=== PATIENT | female | born 1975 | race Caucasian/White ===

== ENCOUNTER 2018-08-18 11:59 | Observation (INO) ==
[2018-08-18 12:40] LABS: Clarity,Urine Slightly Cloudy (Clear); Color,Urine Orange (Yellow)
[2018-08-18 12:41] LABS: Bacteria,Urine Few per hpf (None-Few); RBC,Urine 0-3 per hpf (0-3); Squamous Epithelial Cell,Urine Few per lpf (None-Few)
[2018-08-18 12:49] LABS: Basophils # 0.1 K/mcL (0.0-0.2); Basophils % 0.7 %; Eosinophils # 0.2 K/mcL (0.0-0.6); Eosinophils % 2.6 %; Hematocrit 40.1 % (35.3-44.9); Hemoglobin 13.3 g/dL (11.5-15.4); Immature Granulocytes % 0.7 % (0-4); Lymphocytes # 1.4 K/mcL (0.6-4.6); Lymphocytes % 18.4 %; Mean Corpuscular HGB Conc 33.2 g/dL (31.6-35.5); Mean Corpuscular Hemoglobin 29.8 pg (28.0-33.3); Mean Corpuscular Volume 89.7 fL (83.0-100.0); Mean Platelet Volume 9.5 fL (9.4-12.4); Monocytes # 0.5 K/mcL (0.0-1.3); Monocytes % 6.5 %; Neutrophils # 5.2 K/mcL (1.6-8.9); Platelet Count 263 K/mcL (140-400); Red Blood Count 4.47 M/mcL (3.82-4.97); Red Cell Distribution Width 12.4 % (11.5-14.5); Segmented Neutrophils % 71.1 %
[2018-08-18 13:04] LABS: Alanine Aminotransferase 21 Units/L (7-52); Albumin 4.3 g/dL (3.5-5.7); Albumin/Globulin Ratio 1.7 (1.1-2.2); Alkaline Phosphatase 51 Units/L (34-104); Aspartate Amino Transferase 16 Units/L (13-39); BUN/Creatinine Ratio 17 (6-26); Bilirubin,Direct 0.1 mg/dL (0.0-0.2); Bilirubin,Indirect 0.2 mg/dL (0.0-1.2); Bilirubin,Total 0.3 mg/dL (0.3-1.0); Blood Urea Nitrogen 14 mg/dL (6-20); Calcium 9.5 mg/dL (8.6-10.3); Carbon Dioxide 29 mEq/L (23-29); Chloride 105 mEq/L (98-107); Globulin 2.5 g/dL (2.4-3.5); Glucose 89 mg/dL (70-105); Lipase 23 Units/L (11-82); Osmolality,Calculated 288 (280-300); Sodium 139 mEq/L (136-145); Total Protein 6.8 g/dL (6.4-8.9); eGFR For Non-African Americans > 60 (> 60)
--- NOTE | 2018-08-18 14:14 | Emergency Department Note ---
Disposition Clinical Impression: History of kidney stones, Intractable abdominal pain Disposition: Admitted As Inpatient Condition: Good Referrals: NONE,PCP [Primary Care Provider] - Forms: ED Satisfaction Letter, Work/School Release Time of Disposition: 19:17 Abdominal Pain HPI - General Chief Complaint: ED Abdominal Pain Stated Complaint: kidney stone Time Seen by Provider: 08/18/18 14:14 Source: patient Mode of arrival: ambulatory Limitations: no limitations Nursing Notes Reviewed: Yes Vital Signs Reviewed: Yes - History of Present Illness HPI Narrative: I have re-performed and reviewed the history documented by the medical student, and I confirm its accuracy except as noted below Pain Scale: 7 - Related Data Previous Rx's Medication Instructions Recorded Ketorolac [Toradol] 10 mg PO Q6HR #14 tablet 07/14/18 Allergies Allergy/AdvReac Type Severity Reaction Status Date / Time No Known Allergies Allergy Verified 01/09/16 14:28 All systems ED: reviewed and negative except as stated. Constitutional: Denies: fever Cardiovascular: Denies: chest pain Respiratory: Denies: cough, dyspnea Gastrointestinal: Reports: abdominal pain. Denies: nausea, vomiting, diarrhea Genitourinary: Reports: dysuria. Denies: urgency, frequency, hematuria, discharge, abnormal menses Neurological: Denies: headache, weakness, numbness, paresthesias Abdominal Pain PMH - Past Medical History Medical history: Reports: kidney stones Female Surgical History: Reports: , cholecystectomy Psychiatric history: Reports: no psych history - Social History Smoking status: Never smoker Alcohol use: Reports: rarely Drug use: Reports: none Physical Exam - General Limitations: no limitations General appearance: alert, anxious - Head Head exam: atraumatic, normocephalic, normal inspection - Eye Eye exam: Present: normal appearance, PERRL, EOMI - ENT ENT exam: normal exam, normal oropharynx, mucous membranes moist - Neck Neck exam: Present: normal inspection, full ROM, trachea midline - Chest Chest inspection: Present: normal inspection, symmetric chest wall rise - Respiratory Respiratory exam: Present: normal lung sounds bilaterally - Cardiovascular Cardiovascular exam: Present: regular rate, normal rhythm, normal heart sounds - Abdominal Exam Abdominal exam: Present: soft, Non-Tender. Absent: tenderness, distention, guar ding, rebound, rigidity - Extremities Exam Extremities exam: Present: normal inspection, full ROM. Absent: tenderness, pedal edema - Neurological Exam Neurological exam: Present: alert, oriented X3 - Psychiatric Psychiatric exam: Present: normal affect - Skin Skin exam: Present: warm, dry, intact, normal color Course Course Narrative: Vital stable. Physical exam shows no reproducible abdominal tenderness. Patient feels as though she is getting ready to pass the kidney stone that is present. She is having pain in what she describes as the proximal urethra region. She is still able to pass urine. She has no systemic signs such as nausea, vomiting, fevers. She is supposed to follow-up with urology tomorrow. I do not feel that this patient needs CT imaging at this time as she has a diagnosed 4-5 mm stone that is known. Basic blood work was obtained in triage and shows no major abnormalities. Urinalysis obtained to assess for UTI. No signs of UTI. We give the patient fentanyl and Reading for pain control. She was having some discomfort. We will try some dissociative ketamine at this time. If we can get patient's pain under control, will have her follow-up with urology tomorrow as scheduled. 19:23 patient was given multiple doses of pain medication including fentanyl, Reading, some dissociative ketamine for pain. She is still having suprapubic pain. I talked with urology, Dr. quiroz, he was agreeable with admitting the patient for intractable lower abdominal pain. We will admit the patient to hospitalist. He requested a KUB which showed nonspecific calcifications. He also requested for fluid and Flomax. This was given. I spoke with hospitalist who is agreeable with admitting the patient for intractable pain control. consult urology will be placed. Plan for further pain control inpatient. KUB X-Ray 08/18/18 18:38 IMPRESSION: There are multiple small calcifications in the pelvis. A distal ureteral calculus cannot be excluded. D/ / Todd Guerrero MD / Todd Guerrero MD Interpreting Provider: Todd Guerrero MD Vital Signs Temperature 97.9 F 08/18/18 12:00 Pulse Rate 77 08/18/18 12:00 Respiratory Rate 16 08/18/18 12:00 Blood Pressure 140/76 08/18/18 12:00 O2 Sat by Pulse Oximetry 100 08/18/18 12:00 Temperature 97.9 F 08/18/18 14:21 Pulse Rate 78 08/18/18 18:58 Respiratory Rate 16 08/18/18 18:58 Blood Pressure 127/71 08/18/18 18:58 O2 Sat by Pulse Oximetry 100 08/18/18 18:58 Oxygen Delivery Oxygen Delivery Room Air Abdominal Pain - MDM Narrative Medical decision making narrative: Vital stable. Physical exam shows no reproducible abdominal tenderness. Anish carroll feels as though she is getting ready to pass the kidney stone that is present. She is having pain in what she describes as the proximal urethra region. She is still able to pass urine. She has no systemic signs such as nausea, vomiting, fevers. She is supposed to follow-up with urology tomorrow. I do not feel that this patient needs CT imaging at this time as she has a diagnosed 4-5 mm stone that is known. Basic blood work was obtained in triage and shows no major abnormalities. Urinalysis obtained to assess for UTI. No signs of UTI. We give the patient fentanyl and Reading for pain control. She was having some discomfort. We will try some dissociative ketamine at this time. If we can get patient's pain under control, will have her follow-up with urology tomorrow as scheduled. 19:23 patient was given multiple doses of pain medication including fentanyl, [place], some dissociative ketamine for pain. She is still having suprapubic pain. I talked with urology, Dr. quiroz, he was agreeable with admitting the patient for intractable lower abdominal pain. We will admit the patient to hospitalist. He requested a KUB which showed nonspecific calcifications. He also requested for fluid and Flomax. This was given. I spoke with hospitalist who is agreeable with admitting the patient for intractable pain control. We will consult urology will be placed. Plan for further pain control inpatient. - Medical Records Medical records reviewed: Yes I reviewed the patient's medical records. - Lab Data Lab results reviewed: Yes I reviewed the patient's lab results. Result diagrams: 08/18/18 12:20 08/18/18 12:20 Lab Results 08/18/18 08/18/18 08/18/18 Range/Units 12:07 12:20 12:20 WBC 7.4 (4.3-11.1) K/mcL RBC 4.47 (3.82-4.97) M/mcL Hgb 13.3 (11.5-15.4) g/dL Hct 40.1 (35.3-44.9) % MCV 89.7 (83.0-100.0) fL MCH 29.8 (28.0-33.3) pg MCHC 33.2 (31.6-35.5) g/dL RDW 12.4 (11.5-14.5) % Plt Count 263 (140-400) K/mcL MPV 9.5 (9.4-12.4) fL Immature Gran % 0.7 (0-4) % Seg Neutrophils % 71.1 % Lymphocytes % 18.4 % Monocytes % 6.5 % Eosinophils % 2.6 % Basophils % 0.7 % Neutrophils # 5.2 (1.6-8.9) K/mcL Lymphocytes # 1.4 (0.6-4.6) K/mcL Monocytes # 0.5 (0.0-1.3) K/mcL Eosinophils # 0.2 (0.0-0.6) K/mcL Basophils # 0.1 (0.0-0.2) K/mcL Sodium 139 (136-145) mEq/L Potassium 4.0 (3.5-5.1) mEq/L Chloride 105 (98-107) mEq/L Carbon Dioxide 29 (23-29) mEq/L BUN 14 (6-20) mg/dL Creatinine 0.81 (0.60-1.20) mg/dL Est GFR ( Amer) > 60 (> 60) Est GFR (Non-Af Amer) > 60 (> 60) BUN/Creatinine Ratio 17 (6-26) Glucose 89 (70-105) mg/dL Calculated Osmolality 288 (280-300) Calcium 9.5 (8.6-10.3) mg/dL Total Bilirubin 0.3 (0.3-1.0) mg/dL Direct Bilirubin 0.1 (0.0-0.2) mg/dL Indirect Bilirubin 0.2 (0.0-1.2) mg/dL AST 16 (13-39) Units/L ALT 21 (7-52) Units/L Alkaline Phosphatase 51 (34-104) Units/L Serum Total Protein 6.8 (6.4-8.9) g/dL Albumin 4.3 (3.5-5.7) g/dL Globulin 2.5 (2.4-3.5) g/dL Albumin/Globulin Ratio 1.7 (1.1-2.2) Lipase 23 (11-82) Units/L Ur Specimen Adequacy See below A Urine Color [place] A (Yellow) Urine Clarity Slightly Cloudy A (Clear) Urine Microscopic RBC 0-3 (0-3) per hpf Urine Microscopic WBC 3-5 H (0-3) per hpf Ur Squamous Epith Cells Few (None-Few) per lpf Urine Bacteria Few (None-Few) per hpf Ur Culture Indicated? NO (NO) - Radiology Data Radiology results reviewed: Yes I reviewed the patient's radiology results. KUB X-Ray 08/18/18 18:38 IMPRESSION: There are multiple small calcifications in the pelvis. A distal ureteral calculus cannot be excluded. D/ / Todd Guerrero MD / Todd Guerrero MD Interpreting Provider: Todd Guerrero MD S.B.A[facility]R. - S.B.A.R. Situation: Demographics, MOA Background: Presenting Complaint, Relevant PMH, Meds, & Allergies Assessment: Vital Signs, Course and respsone to treatment, Exam Concerns, Patient/Family Expectation, Pertinant Lab Results Recommendation: Barrier(s) to disposition, Recommendation based on pending studies, treatments, or consults [facility].B.A.R. Report Given to: Dr. Woodall
[2018-08-18] MEDS ORDERED: *HR* HYDROcodone/Acet 5/325 mg TABLET PO ONE (14:30)
--- NOTE | 2018-08-18 14:39 | Emergency Department Note ---
Disposition Clinical Impression: History of kidney stones, Intractable abdominal pain Disposition: Admitted As Inpatient Condition: Good General Adult HPI - General Chief complaint: ED Abdominal Pain Stated complaint: kidney stone Time Seen by Provider: 08/18/18 14:14 Source: patient Mode of arrival: ambulatory Limitations: no limitations - History of Present Illness HPI Narrative: Patient is a 43 year old female with PMH of kidney stones requiring lithotripsy removal with most recent stone diagnosed on 07/14/18 at [facility] 5mm stone on left side presents today with lower pelvic pain for the past 3 days. Patient reports that she has not been able to pass the stone that diagnosed on the 07/14/18. Patient describes the pain as a intermittent "razor blade" type pain that has no exacerbating or alleviating factors. Patient states that this feels similar to her past kidney stones. Patient has been taking Toradol prescribed by [facility] with minimal relief and for the past 24 hours she has taken 5 doses of pyrimidine. Patient reports that she has an appointment scheduled with Dr. Francisco urologist tomorrow morning at 7:45am but she could not tolerate the pain so she came in. Patient denies fever, chills, dysuria, hematuria, vaginal bleeding or discharge, nausea, vomiting, diarrhea. Pain Scale: 7 - Related Data Previous Rx's Medication Instructions Recorded Ketorolac [Toradol] 10 mg PO Q6HR #14 tablet 07/14/18 Allergies Allergy/AdvReac Type Severity Reaction Status Date / Time No Known Allergies Allergy Verified 01/09/16 14:28 Constitutional: Denies: fever, chills Eyes: Denies: eye pain, vision change ENT ED: Denies: ear pain, throat pain, congestion Cardiovascular: Denies: chest pain, palpitations, syncope Respiratory: Denies: cough, dyspnea Gastrointestinal: Reports: abdominal pain (lower pelvic pain). Denies: nausea, vomiting, diarrhea Genitourinary: Denies: dysuria, hematuria Musculoskeletal: Denies: back pain, neck pain Integumentary: Denies: rash, lesions Neurological: Denies: headache, weakness, numbness Hematological/Lymphatic: Denies: easy bleeding, easy bruising Past Medical History - Past Medical History Medical history: Reports: kidney stones Psychiatric history: Reports: no psych history - Social History Smoking Status: Never smoker Smokeless Tobacco Status: No Alcohol use: Reports: rarely Drug use: Reports: none Physical Exam - General Limitations: no limitations General appearance: alert, in no apparent distress - Head Head exam: atraumatic, normocephalic, normal inspection - Eye Eye exam: Present: normal appearance, PERRL, EOMI - ENT ENT exam: normal exam, normal oropharynx, mucous membranes moist - Neck Neck exam: Present: normal inspection, full ROM, trachea midline - Chest Chest inspection: Present: normal inspection, symmetric chest wall rise - Respiratory Respiratory exam: Present: normal lung sounds bilaterally - Cardiovascular Cardiovascular exam: Present: regular rate, normal rhythm, normal heart sounds - Abdominal Exam Abdominal exam: Present: soft, Non-Tender. Absent: tenderness, distention, guarding, rebound, rigidity - Extremities Exam Extremities exam: Present: normal inspection, full ROM. Absent: tenderness, pedal edema - Back Exam Back exam: Present: normal inspection, full ROM. Absent: tenderness, CVA tenderness (R), CVA tenderness (L) - Neurological Exam Neurological exam: Present: alert, oriented X3 - Psychiatric Psychiatric exam: Present: normal affect, normal mood - Skin Skin exam: Present: warm, dry, intact, normal color Course Vital Signs Temperature 97.9 F 08/18/18 12:00 Pulse Rate 77 08/18/18 12:00 Respiratory Rate 16 08/18/18 12:00 Blood Pressure 140/76 08/18/18 12:00 O2 Sat by Pulse Oximetry 100 08/18/18 12:00 Temperature 97.9 F 08/18/18 14:21 Pulse Rate 78 08/18/18 18:58 Respiratory Rate 16 08/18/18 18:58 Blood Pressure 127/71 08/18/18 18:58 O2 Sat by Pulse Oximetry 100 08/18/18 18:58 Oxygen Delivery Oxygen Delivery Room Air Medical Decision Making - Lab Data Result diagrams: 08/18/18 12:20 08/18/18 12:20 Lab Results 08/18/18 08/18/18 08/18/18 Range/Units 12:07 12:20 12:20 WBC 7.4 (4.3-11.1) K/mcL RBC 4.47 (3.82-4.97) M/mcL Hgb 13.3 (11.5-15.4) g/dL Hct 40.1 (35.3-44.9) % MCV 89.7 (83.0-100.0) fL MCH 29.8 (28.0-33.3) pg MCHC 33.2 (31.6-35.5) g/dL RDW 12.4 (11.5-14.5) % Plt Count 263 (140-400) K/mcL MPV 9.5 (9.4-12.4) fL Immature Gran % 0.7 (0-4) % Seg Neutrophils % 71.1 % Lymphocytes % 18.4 % Monocytes % 6.5 % Eosinophils % 2.6 % Basophils % 0.7 % Neutrophils # 5.2 (1.6-8.9) K/mcL Lymphocytes # 1.4 (0.6-4.6) K/mcL Monocytes # 0.5 (0.0-1.3) K/mcL Eosinophils # 0.2 (0.0-0.6) K/mcL Basophils # 0.1 (0.0-0.2) K/mcL Sodium 139 (136-145) mEq/L Potassium 4.0 (3.5-5.1) mEq/L Chloride 105 (98-107) mEq/L Carbon Dioxide 29 (23-29) mEq/L BUN 14 (6-20) mg/dL Creatinine 0.81 (0.60-1.20) mg/dL Est GFR ( Amer) > 60 (> 60) Est GFR (Non-Af Amer) > 60 (> 60) BUN/Creatinine Ratio 17 (6-26) Glucose 89 (70-105) mg/dL Calculated Osmolality 288 (280-300) Calcium 9.5 (8.6-10.3) mg/dL Total Bilirubin 0.3 (0.3-1.0) mg/dL Direct Bilirubin 0.1 (0.0-0.2) mg/dL Indirect Bilirubin 0.2 (0.0-1.2) mg/dL AST 16 (13-39) Units/L ALT 21 (7-52) Units/L Alkaline Phosphatase 51 (34-104) Units/L Serum Total Protein 6.8 (6.4-8.9) g/dL Albumin 4.3 (3.5-5.7) g/dL Globulin 2.5 (2.4-3.5) g/dL Albumin/Globulin Ratio 1.7 (1.1-2.2) Lipase 23 (11-82) Units/L Ur Specimen Adequacy See below A Urine Color [place] A (Yellow) Urine Clarity Slightly Cloudy A (Clear) Urine Microscopic RBC 0-3 (0-3) per hpf Urine Microscopic WBC 3-5 H (0-3) per hpf Ur Squamous Epith Cells Few (None-Few) per lpf Urine Bacteria Few (None-Few) per hpf Ur Culture Indicated? NO (NO)
[2018-08-18] MEDS ORDERED: *HR* FentaNYL (PF) 100 MCG/2 ML VIAL IVP ONE (14:42)
[2018-08-18] MEDS ORDERED: Ketamine *HR* 20 MG in 0.9 % Sodium Chloride 100 ML IVPB ONE (16:06)
[2018-08-18] MEDS ORDERED: 0.9 % Sodium Chloride 1,000 ML IVC ONE (18:38)
[2018-08-18] MEDS ORDERED: Naloxone 0.4 MG/ML INJ IVP PRN (20:27)
--- NOTE | 2018-08-18 20:47 | Internal Med History&Physical ---
<Ross Ortega - Last Filed: 08/18/18 21:49> Date of Encounter: 08/18/18 Time of Encounter: 20:29 Internal Medicine - H&P: HPI Chief complaint: Abdominal Pain; Kidney Stone Admitted From: Home Plans for Post Hospital Care: Home History of present illness: Ms. Loco is a 43 year old female with PMHx significant for multiple kidney stones in the past who presents with suprapubic abdominal pain which patient suggests is due to kidney stone. States that she has been feeling abdominal pain on and off for the past month, but over the past 3 days, pain has worsened so much so that she decided to come to the ED. Describes pain as sharp, razor- like pain that comes and goes, rated 10/10 at its worst. Pain is not alleviated or worsened by anything in particular. Recent visited [facility] ED on , and was noted to have 4mm obstructing calculus in proximal left ureter. Discharged with Craigmont and Toradol, and notes she has only needed to use pain medicine infrequently until the past 3 days. Has hx of multiple kidney stones in the past, including one instance in which she had lithotripsy done approximately 2 years ago. Currently states that she feels as if she may pass the stone soon, but notes that the pain has been unbearable over the past 3 days. Denies difficulty or pain with urination, dysuria, hematuria, urinary freq, urinary urgency, flank tenderness, abdominal pain, nausea, vomiting, diarrhea, fevers/chills. Denies headache, vision changes, chest pain, palpitations, SOB, weakness, fatigue. In the ED, workup was completed. Vitals hemodynamically stable. Pt afebrile, resting comfortably at bedside, complaining of moderate pain. No abdominal tenderness to palpation, guarding or rebound, cva tenderness. CBC benign without leukocytosis. CMP benign. UA altered due to recent pyridium use, but do not show any overt signs of infection. KUB indicated multiple small calcifications in the pelvis with suggestion of possible distal ureteral calculus. Previous CT abd/pelvis done last month at [facility] indicated 4mm obstructing calculus in proximal left ureter. Patient was given IVF, fentanyl, norco, and ketamine for pain control with mild relief. Also given dose of Flomax. Urologist Dr. Benavides consulted in the ED and was agreeable to admitting patient due to intractable lower abdominal pain. Initial Vitals: T = 97.9; HR = 77; RR = 16; BP = 140/76; O2 = 100 on RA CBC: Within normal limits (no leukocytosis) CMP: Within normal Limits UA: Recent pyridum use (orange urine) - however, no overt signs of infection KUB: Multiple small calcifications in the pelvis. Distal ureteral calculus cannot be excluded. CT Abd/pelvis w/out contrast (07/14/2018) at [facility]: - Mild to moderate left hydronephrosis and proximal hydroureter secondary to 4mm obstructing calculus in the proximal left ureter. Multiple bilateral small nonobstructing renal calculi. Admitted due to intractable lower abdominal pain. Pending urology consult in the AM. Past Med Surg Social Fam HX - Past Medical History Attestation: Yes The following information was validated with the patient. Source: patient, old records reviewed Medical history: kidney stones Psychiatric history: no psych history - Past Surgical History Surgical History: ( x2), cholecystectomy, other (Lithotripsy) Additional surgical history: Tonsillectomy - Social History Smoking Status: Never smoker Smokeless Tobacco Status: No Alcohol use: rarely Drug use: none - Family History Mother Hx Family Cardiac Disorders: Yes (HTN) Internal Medicine - H&P: Meds No Known Home Drugs 08/18/18 [History] Allergy/AdvReac Type Severity Reaction Status Date / Time No Known Allergies Allergy Verified 08/18/18 22:18 All Systems PM: A 10-system review of systems was performed and is negative for pertinent findings except as documented above in the HPI. - Constitutional Constitutional: no anorexia, no chills, no fatigue, no fever(s), no malaise, no night sweats - EENT Eyes: no blurry vision, no change in vision Nose, mouth and throat: no nasal congestion, no neck pain, no sore throat - Cardiovascular Cardiovascular ROS IM: no chest pain, no diaphoresis, no dyspnea, no edema, no lightheadedness, no palpitations, no syncope - Respiratory Respiratory: no cough, no dyspnea - Gastrointestinal Gastrointestinal: abdominal pain, no coffee ground emesis, no constipation, no cramping, no diarrhea, no hematemesis, no melena, no nausea, no vomiting - Genitourinary Genitourinary: no abnormal menses, no difficulty urinating, no difficulty voiding, no dysuria, no flank pain, no hematuria, no urinary frequency, no urinary hesitancy, no urinary incontinence, no urinary urgency - Musculoskeletal Musculoskeletal ROS IM: no back pain, no myalgias - Integumentary Integumentary IM: no rash - Neurological Neurological ROS: no dizziness, no headache(s), no weakness - Constitutional Vitals: Temp Pulse Resp BP Pulse Ox 97.9 F 78 16 127/71 100 08/18/18 14:21 08/18/18 18:58 08/18/18 18:58 08/18/18 18:58 08/18/18 18:58 General appearance: Present: cooperative, A&O X 3, pleasant, no acute distress, answers questions appropriately Exam: GEN: AOx3, NAD; resting comfortably in bed HEENT: Atraumatic, Normocephalic, EOMI, PERRLA, mucous membranes moist CARDIO: RRR, no murmurs, rubs, gallops RESP: CTAB; no wheezes, rales, rhonchi ABD: Soft, non-tender, non-distended; no suprapubic tenderness; no rebound or guarding; no CVA tenderness NEURO: No focal deficits; CN 2 - 12 intact EXT: No lower extremity edema; distal pulses palpable; no rash or lesions Internal Med - H&P Results - Labs CBC & Chem 7: 08/18/18 12:20 08/18/18 12:20 Labs: Short CBC 08/18/18 Range/Units 12:20 WBC 7.4 (4.3-11.1) K/mcL Hgb 13.3 (11.5-15.4) g/dL Hct 40.1 (35.3-44.9) % Plt Count 263 (140-400) K/mcL Neutrophils # 5.2 (1.6-8.9) K/mcL BMP 08/18/18 12:20 Sodium 139 Potassium 4.0 Chloride 105 Carbon Dioxide 29 BUN 14 Creatinine 0.81 Glucose 89 Calcium 9.5 Liver Function 08/18/18 Range/Units 12:20 Total Bilirubin 0.3 (0.3-1.0) mg/dL Direct Bilirubin 0.1 (0.0-0.2) mg/dL AST 16 (13-39) Units/L ALT 21 (7-52) Units/L Alkaline Phosphatase 51 (34-104) Units/L Albumin 4.3 (3.5-5.7) g/dL Urine 08/18/18 Range/Units 12:07 Urine Color [place] A (Yellow) Urine Clarity Slightly Cloudy A (Clear) - Impressions ITS Impressions KUB X-Ray 08/18/18 18:38 IMPRESSION: There are multiple small calcifications in the pelvis. A distal ureteral calculus cannot be excluded. D/ / Todd Guerrero MD / Todd Guerrero MD Interpreting Provider: Todd Guerrero MD - Assessment and plan (1) Nephrolithiasis Current Visit: Yes Status: Acute Assessment and plan: Ms. Loco is a 43 year old female with PMHx significant for multiple kidney stones in the past who presents with suprapubic abdominal pain which patient suggests is due to kidney stone. Off and On pain for the past month - sharp, razor like Denies fevers/chills, abdominal pain, n/v/d; Denies dysuria, hematuria, urinary frequency, urgency Vitals stable on admission; CBC benign without leukocytosis; CMP benign CT Abd/pelvis w/out contrast (07/14/2018) at [facility]: - Mild to moderate left hydronephrosis and proximal hydroureter secondary to 4mm obstructing calculus in the proximal left ureter. Multiple bilateral small nonobstructing renal calculi. KUB: Multiple small calcifications in the pelvis. Distal ureteral calculus cannot be excluded. Patient was given IVF, fentanyl, norco, and ketamine for pain control with mild relief. Also given dose of Flomax. Urologist Dr. Benavides consulted in the ED and was agreeable to admitting patient due to intractable lower abdominal pain. PLAN: Urology recommendations appreciated Cont IVF Cont Pain control Cont Flomax Monitor Vitals (2) History of kidney stones Current Visit: Yes Status: Acute Assessment and plan: Hx of multiple kidney stones in the past S/p Lithotripsy x 1 PLAN: Follow up urology (3) Intractable abdominal pain Current Visit: Yes Status: Acute Assessment and plan: Given Fentanyl, [place], Ketamine in the ED with only minimal relief of suprapubic pain PLAN: Pain control - will give Oxycodone 5mg q6h Cont IVF (4) DVT prophylaxis Current Visit: Yes Status: Acute Assessment and plan: Heparin SQ BID - Time Spent With Patient Total time spent is greater than 50% in coordination of care (as documented) at patient's floor/unit and/or counseling patient: less than 15 minutes <Damien Gay - Last Filed: 08/18/18 22:52> Date of Encounter: 08/18/18 Internal Medicine - H&P: HPI History of present illness: Ms. Loco is a 43 year old female All Systems PM: A 10-system review of systems was performed and is negative for pertinent findings except as documented above in the HPI. - Constitutional Vitals: Temp Pulse Resp BP Pulse Ox 97.9 F 69 14 113/74 100 08/18/18 21:02 08/18/18 21:02 08/18/18 21:02 08/18/18 21:02 08/18/18 21:02 Internal Med - H&P Results - Labs CBC & Chem 7: 08/18/18 12:20 08/18/18 12:20 Labs: Short CBC 08/18/18 Range/Units 12:20 WBC 7.4 (4.3-11.1) K/mcL Hgb 13.3 (11.5-15.4) g/dL Hct 40.1 (35.3-44.9) % Plt Count 263 (140-400) K/mcL Neutrophils # 5.2 (1.6-8.9) K/mcL BMP 08/18/18 12:20 Sodium 139 Potassium 4.0 Chloride 105 Carbon Dioxide 29 BUN 14 Creatinine 0.81 Glucose 89 Calcium 9.5 Liver Function 08/18/18 Range/Units 12:20 Total Bilirubin 0.3 (0.3-1.0) mg/dL Direct Bilirubin 0.1 (0.0-0.2) mg/dL AST 16 (13-39) Units/L ALT 21 (7-52) Units/L Alkaline Phosphatase 51 (34-104) Units/L Albumin 4.3 (3.5-5.7) g/dL Urine 08/18/18 Range/Units 12:07 Urine Color [place] A (Yellow) Urine Clarity Slightly Cloudy A (Clear) - Impressions ITS Impressions KUB X-Ray 08/18/18 18:38 IMPRESSION: There are multiple small calcifications in the pelvis. A distal ureteral calculus cannot be excluded. D/ / Todd Guerrero MD / Todd Guerrero MD Interpreting Provider: Todd Guerrero MD - Time Spent With Patient Total time spent is greater than 50% in coordination of care (as documented) at patient's floor/unit and/or counseling patient: - Attending Attestation I saw and evaluated the patient. I reviewed the residents note, performed my own physical examination and agree with findings and plan as documented in the residents note. Patient seen and examined on 08/18/18. Patient presented to ER With increasing pain secondary to known kidney stone. Initially had CT scan showing a 4-5mm stone at the end of June. Patient has yet to pass the stone but states that she feels that it is only a few inches from being passed. She has been on Toradol at home, but has not been helping with the pain. In the ER she was given fentanyl and norco but has yet to feel relief. Urology was notified from the ER, will see the patient in the morning. Will treat pain with oxycodone for now and monitor for improvement. Patient also started on Flomax as well. Continue to monitor.
[2018-08-18] MEDS ORDERED: *HR* OxyCODONE Immed Rel 5 MG TABLET PO PRN ×2 (21:29→22:44)
[2018-08-18] MEDS: 0.9 % Sodium Chloride 1,000 ML IVC SCH (21:30)
[2018-08-18] MEDS ORDERED: *HR* OxyCODONE Immed Rel 5 MG TABLET PO ONE (22:45)
[2018-08-19] MEDS ORDERED: Ketorolac 30 MG/ML VIAL IVP SCH
[2018-08-19 05:25] LABS: Basophils % 0.7 %; Eosinophils # 0.2 K/mcL (0.0-0.6); Eosinophils % 3.9 %; Hematocrit 34.8 % (35.3-44.9); Immature Granulocytes % 0.4 % (0-4); Lymphocytes # 1.4 K/mcL (0.6-4.6); Lymphocytes % 31.5 %; Mean Corpuscular Hemoglobin 29.9 pg (28.0-33.3); Mean Corpuscular Volume 90.4 fL (83.0-100.0); Mean Platelet Volume 9.6 fL (9.4-12.4); Monocytes # 0.4 K/mcL (0.0-1.3); Monocytes % 7.9 %; Neutrophils # 2.5 K/mcL (1.6-8.9); Platelet Count 191 K/mcL (140-400); Red Blood Count 3.85 M/mcL (3.82-4.97); Red Cell Distribution Width 12.5 % (11.5-14.5); Segmented Neutrophils % 55.6 %
[2018-08-19] MEDS: 0.9 % Sodium Chloride 1,000 ML IVC SCH ×3 (05:31→20:39)
[2018-08-19] MEDS: *HR* Heparin 5,000 UNIT/ML VIAL SQ SCH ×2 (05:32→17:53)
[2018-08-19 05:33] LABS: Hemoglobin 11.5 g/dL (11.5-15.4)
[2018-08-19 05:40] LABS: BUN/Creatinine Ratio 17 (6-26); Blood Urea Nitrogen 11 mg/dL (6-20); Calcium 8.1 mg/dL (8.6-10.3); Carbon Dioxide 25 mEq/L (23-29); Chloride 110 mEq/L (98-107); Glucose 82 mg/dL (70-105); Osmolality,Calculated 288 (280-300); Sodium 140 mEq/L (136-145); eGFR For Non-African Americans > 60 (> 60)
--- NOTE | 2018-08-19 10:22 | Urology - Consult Note ---
<Guadalupe oGnzalez N - Last Filed: 08/19/18 10:20> Date of Encounter: 08/19/18 Time of Encounter: 08:45 - Assessment and Plan (1) Ureteral calculus, left Current Visit: Yes Status: Acute Assessment and plan: Patient is a 43-year-old female who presents the history of a 4 mm left ureteral stone. CT of the abdomen and pelvis from 07/14/2018 reveals proximal 4 mm left ureteral stone, mild to moderate left hydronephrosis, and bilateral nonobstructing nephrolithiasis. KUB performed yesterday suggests distal left ureteral stone. Location of calculus could possibly need redetermined with CT scan; however, given patient's acute presentation and symptoms, ureteral calculus has likely moved distal. Discussed surgical risks and benefits including bleeding, infection, scarring, stricture, damage to surrounding organ s, anesthesia effects, blood clots, failure to definitively extract stone. Patient verbalizes understanding, and consent has been signed. Patient will remain nothing by mouth. It is of note, patient does not wish to have ureteral stent unless Dr. Madera believes it is necessary. (2) Nephrolithiasis Current Visit: Yes Status: Acute (3) Intractable abdominal pain Current Visit: Yes Status: Acute Urology CN:HPI Consult date: 08/19/18 Reason for consult Urology: Other (left ureteral stone) History of present illness: Patient is a 43-year-old female who presents with a history of a left 4 mm ureteral stone. Patient initially underwent a CT scan of abdomen and pelvis on 07/14/2018 revealing a 4mm proximal left ureteral stone. Patient was given oral Flomax, Toradol and [place] and subsequently discharged from [facility] ED. Patient states pain was intermittent and mild but acutely worsened 4 days ago. Patient reports colicky, sharp abdominal pain. Patient denies fever, chills, flank pain, gross hematuria, dysuria, frequency, urgency, hesitancy. Patient states p ain was unbearable, and she made a new patient appointment with Dr. Francisco for this morning. Last night, patient was unable to tolerate pain any longer and presented to [facility] ED where she underwent a KUB suggestive of a left distal ureteral stone. Patient reports having a long-standing history of renal stones, with her last stone being 2-3 years ago. Patient states this previous stone was treated by Dr. Spear at [facility] with lithotripsy and ureteral stent placement; all prior stones were passed by medical expulsion. Patient has a significant family history through her father, sister, and niece renal stones. Past Med Surg Social Fam HX - Past Medical History Medical history: kidney stones Psychiatric history: no psych history - Past Surgical History Surgical History: ( x2), cholecystectomy, other (Lithotripsy) Additional surgical history: Tonsillectomy - Social History Smoking Status: Never smoker Smokeless Tobacco Status: No Alcohol use: rarely Drug use: none - Family History Mother Hx Family Cardiac Disorders: Yes (HTN) Medications and Allergies RX: OxyCODONE Immed Rel [Roxicodone 5 MG] 5 mg PO Q8HR PRN 5 Days #10 tablet 08/19/18 [Rx] RX: Tamsulosin [Flomax] 0.4 mg PO HS #30 capsule 08/19/18 [Rx] Allergy/AdvReac Type Severity Reaction Status Date / Time No Known Allergies Allergy Verified 08/18/18 22:18 Review of Systems - Constitutional no chills, no fatigue, no fever(s) - EENT Nose, mouth and throat: no dizziness, no headache(s) - Cardiovascular no chest pain, no diaphoresis, no dyspnea - Respiratory no cough, no dyspnea - Gastrointestinal abdominal pain, no nausea, no vomiting - Genitourinary Genitourinary: no change in urinary stream, no difficulty urinating, no dysuria, no flank pain, no hematuria, no urinary frequency, no urinary hesitancy, no urinary urgency - Musculoskeletal no back pain, no muscle weakness - Integumentary no erythema, no lesions, no rash - Neurological no confusion, no syncope - Psychiatric no anxiety, no confusion - Hematologic/Lymphatic no easy bleeding, no easy bruising - Allergic/Immunologic no throat swelling, no wheezing Exam Initial Vital Signs Temp Pulse Resp BP Pulse Ox 97.9 F 77 16 140/76 100 08/18/18 12:00 08/18/18 12:00 08/18/18 12:00 08/18/18 12:00 08/18/18 12:00 - General physical appearance Present: well developed, no distress, no pain - Eyes Present: PERRL, normal ocular movement - ENT Present: normal nares, no hearing loss, no congestion - Neck Present: no masses, trachea midline - Respiratory Present: normal respiratory effort - Cardiovascular Cardiovascular exam IM: RRR - Abdomen Abdomen: Present: soft, non tender - Integumentary Present: no rash, no abnormal pigmentation - Neurologic Present: normal coordination - Musculoskeletal Present: other (normal posture ) Urology Results - Labs 08/19/18 04:48 08/19/18 04:48 Abnormal lab results Hct 34.8 % (35.3-44.9) L 08/19/18 04:48 Chloride 110 mEq/L (98-107) H 08/19/18 04:48 Calcium 8.1 mg/dL (8.6-10.3) L 08/19/18 04:48 Ur Specimen Adequacy See below A 08/18/18 12:07 Urine Color [place] (Yellow) A 08/18/18 12:07 Urine Clarity Slightly Cloudy (Clear) A 08/18/18 12:07 Urine Microscopic WBC 3-5 per hpf (0-3) H 08/18/18 12:07 Diabetes panel 08/18/18 08/19/18 Range/Units 12:20 04:48 Sodium 139 140 (136-145) mEq/L Potassium 4.0 4.0 (3.5-5.1) mEq/L Chloride 105 110 H (98-107) mEq/L Carbon Dioxide 29 25 (23-29) mEq/L BUN 14 11 (6-20) mg/dL Creatinine 0.81 0.66 (0.60-1.20) mg/dL Glucose 89 82 (70-105) mg/dL Calcium 9.5 8.1 L (8.6-10.3) mg/dL AST 16 (13-39) Units/L ALT 21 (7-52) Units/L Alkaline Phosphatase 51 (34-104) Units/L Albumin 4.3 (3.5-5.7) g/dL Calcium panel 08/18/18 08/19/18 Range/Units 12:20 04:48 Calcium 9.5 8.1 L (8.6-10.3) mg/dL Albumin 4.3 (3.5-5.7) g/dL Pituitary panel 08/18/18 08/19/18 Range/Units 12:20 04:48 Sodium 139 140 (136-145) mEq/L Potassium 4.0 4.0 (3.5-5.1) mEq/L Chloride 105 110 H (98-107) mEq/L Carbon Dioxide 29 25 (23-29) mEq/L BUN 14 11 (6-20) mg/dL Creatinine 0.81 0.66 (0.60-1.20) mg/dL Glucose 89 82 (70-105) mg/dL Calcium 9.5 8.1 L (8.6-10.3) mg/dL Adrenal panel 08/18/18 08/19/18 Range/Units 12:20 04:48 Sodium 139 140 (136-145) mEq/L Potassium 4.0 4.0 (3.5-5.1) mEq/L Chloride 105 110 H (98-107) mEq/L Carbon Dioxide 29 25 (23-29) mEq/L BUN 14 11 (6-20) mg/dL Creatinine 0.81 0.66 (0.60-1.20) mg/dL Glucose 89 82 (70-105) mg/dL Calcium 9.5 8.1 L (8.6-10.3) mg/dL Total Bilirubin 0.3 (0.3-1.0) mg/dL AST 16 (13-39) Units/L ALT 21 (7-52) Units/L Alkaline Phosphatase 51 (34-104) Units/L Albumin 4.3 (3.5-5.7) g/dL All other labs normal. - Imaging Abdominal x-ray: report reviewed, image reviewed CT scan - abdomen: report reviewed, image reviewed CT scan - pelvis: report reviewed, image reviewed Consult Discharge Plan - Plan Referrals: NONE,PCP [Primary Care Provider] - Prescriptions: RX: OxyCODONE Immed Rel [Roxicodone 5 MG] 5 mg PO Q8HR PRN 5 Days #10 tablet PRN Reason: Severe Pain RX: Tamsulosin [Flomax] 0.4 mg PO HS #30 capsule <Jose Madera - Last Filed: 08/19/18 16:35> Date of Encounter: 08/19/18 - Assessment and Plan (1) Ureteral calculus, left Current Visit: Yes Status: Acute Assessment and plan: patient was seen and examined. I agree with plan as written by Guadalupe Gonzalez. to or today for stone extraction. Exam Initial Vital Signs Temp Pulse Resp BP Pulse Ox 97.9 F 77 16 140/76 100 08/18/18 12:00 11/29/18 12:00 08/18/18 12:00 08/18/18 12:00 08/18/18 12:00 Urology Results - Labs 08/19/18 04:48 08/19/18 04:48 Abnormal lab results Hct 34.8 % (35.3-44.9) L 08/19/18 04:48 Chloride 110 mEq/L (98-107) H 08/19/18 04:48 Calcium 8.1 mg/dL (8.6-10.3) L 08/19/18 04:48 Ur Specimen Adequacy See below A 08/18/18 12:07 Urine Color [place] (Yellow) A 08/18/18 12:07 Urine Clarity Slightly Cloudy (Clear) A 08/18/18 12:07 Urine Microscopic WBC 3-5 per hpf (0-3) H 08/18/18 12:07 Diabetes panel 08/19/18 Range/Units 04:48 Sodium 140 (136-145) mEq/L Potassium 4.0 (3.5-5.1) mEq/L Chloride 110 H (98-107) mEq/L Carbon Dioxide 25 (23-29) mEq/L BUN 11 (6-20) mg/dL Creatinine 0.66 (0.60-1.20) mg/dL Glucose 82 (70-105) mg/dL Calcium 8.1 L (8.6-10.3) mg/dL Calcium panel 08/19/18 Range/Units 04:48 Calcium 8.1 L (8.6-10.3) mg/dL Pituitary panel 08/19/18 Range/Units 04:48 Sodium 140 (136-145) mEq/L Potassium 4.0 (3.5-5.1) mEq/L Chloride 110 H (98-107) mEq/L Carbon Dioxide 25 (23-29) mEq/L BUN 11 (6-20) mg/dL Creatinine 0.66 (0.60-1.20) mg/dL Glucose 82 (70-105) mg/dL Calcium 8.1 L (8.6-10.3) mg/dL Adrenal panel 08/19/18 Range/Units 04:48 Sodium 140 (136-145) mEq/L Potassium 4.0 (3.5-5.1) mEq/L Chloride 110 H (98-107) mEq/L Carbon Dioxide 25 (23-29) mEq/L BUN 11 (6-20) mg/dL Creatinine 0.66 (0.60-1.20) mg/dL Glucose 82 (70-105) mg/dL Calcium 8.1 L (8.6-10.3) mg/dL All other labs normal.
--- NOTE | 2018-08-19 13:20 | Discharge Summary ---
- NOTES TO OUTPATIENT PROVIDER Notes to Outpatient Provider: f/u with PCP in one week. F/u with Urology in 1-2 weeks Date of Encounter: 08/19/18 Time of Encounter: 13:15 - Discharge Diagnosis (1) Ureteral calculus, left Priority: Primary Status: Acute (2) Intractable abdominal pain Priority: Primary Status: Acute (3) History of kidney stones Priority: Secondary Status: Acute (4) Nephrolithiasis Priority: Secondary Status: Acute Hospital course: Ms. Loco is a 43 year old female with PMHx significant for multiple kidney stones in the past who presents with suprapubic abdominal pain which patient suggests is due to kidney stone. States that she has been feeling abdominal pain on and off for the past month, but over the past 3 days, pain has worsened so much so that she decided to come to the ED. At [facility] ED on 07/14/18, and was noted to have 4mm obstructing calculus in proximal left ureter. Her KUB showed distal left ureter calculus. Pt pain is well controlled with current medication. She was admitted in the hospital and evaluated by Urology. Dr. Madera is planning on doing cystoscoe with stone extraction this afternoon. So pt can go home after the procedure with analgesics and flomax. Her UA is completely benign. - Time Spent with Patient Total time spent providing and/or coordinating discharge services: - Discharge Medications Prescriptions: RX: OxyCODONE Immed Rel [Roxicodone 5 MG] 5 mg PO Q8HR PRN 5 Days #10 tablet PRN Reason: Severe Pain RX: Tamsulosin [Flomax] 0.4 mg PO HS #30 capsule Home Medications: RX: OxyCODONE Immed Rel [Roxicodone 5 MG] 5 mg PO Q8HR PRN 5 Days #10 tablet 08/19/18 [Rx] RX: Tamsulosin [Flomax] 0.4 mg PO HS #30 capsule 08/19/18 [Rx] Allergies/Adverse Reactions: Allergy/AdvReac Type Severity Reaction Status Date / Time No Known Allergies Allergy Verified 08/18/18 22:18 Date of admission: 08/18/18 20:04 Primary care physician: PCP NONE Consults: 08/18/18 21:37 Consult to Urology [CONS] Routine Consulting Provider: Urology Mariella Reason for Consult: kidney stone Call Completed: Yes - Constitutional Vitals: Temp Pulse Resp BP Pulse Ox 98.1 F 83 16 98/65 97 08/19/18 10:58 08/19/18 10:58 08/19/18 10:58 08/19/18 10:58 08/19/18 10:58 General appearance: Present: cooperative, A&O X 3, pleasant, no acute distress, answers questions appropriately Exam: Gen: Alert, awake, Oriented to time,place and person Chest: Diminished breath sounds B/L, No wheezing, No crackles, No rales Heart: S1S2+ RRR No murmurs Abd: Soft, NT, BS +, No organomegaly Ext: No edema, pulses are palpable, No calf tenderness Neuro : Benign findings Skin: No rash. - Patient Status Disposition: Home, Self-Care Condition: Good Overall status at discharge: patient is back to baseline - Discharge Instructions Follow Up With: NONE,PCP [Primary Care Provider] - - Diet and Activity Activity: increase activity as tolerated Diet: advance to your usual diet Addendum entered and electronically signed by Jose Madera MD 08/20/18 08:32: patient went to surgery on 08/20/18. no stent placed. patient had passed stone. small stone removed from left kidney which will be sent for analysis. patient will be discharged today 08/20/18
[2018-08-20] MEDS: *HR* Heparin 5,000 UNIT/ML VIAL SQ SCH (05:29)
[2018-08-20] MEDS: 0.9 % Sodium Chloride 1,000 ML IVC SCH (05:32)
[2018-08-20] MEDS ORDERED: *HR* FentaNYL (PF) 100 MCG/2 ML VIAL ONE (07:05)
[2018-08-20] MEDS ORDERED: *HR* Midazolam HCl 2 MG/2 ML VIAL ONE (07:06)
[2018-08-20] MEDS ORDERED: *HR* Propofol 200 MG/20 ML VIAL IVP ONE (07:06)
[2018-08-20] MEDS ORDERED: *HR* Succinylcholine 200 MG/10 ML VIAL IVP ONE (07:07)
[2018-08-20] MEDS ORDERED: Ondansetron 4 MG/2 ML VIAL ONE (07:08)
[2018-08-20] MEDS ORDERED: Dexamethasone 4 MG/ML VIAL ONE (07:08)
[2018-08-20] MEDS ORDERED: Lidocaine -MPF 2% 2 ML VIAL ONE (07:08)
--- NOTE | 2018-08-20 07:11 | Anesthesia Evaluation PreOp ---
Date of Encounter: 08/20/18 Time of Encounter: 07:25 - Past History Planned Operation: Left USE with laser Cardiac History: Denies any Significant Hx Pulmonary History: Denies Any Significant HX GROOVER AND TURNER History: Denies Any Significant HX Other Medical History: Renal (hx multiple stones in the past) Anesthesia History: No Prior Anesthetic Complications, Past Anesthesia (Tonsi llectomy, ( x2), cholecystectomy, other (Lithotripsy)) Alcohol Use: rarely Drug use: none Medications and Allergies OxyCODONE Immed Rel [Roxicodone 5 MG] 5 mg PO Q8HR PRN 5 Days #10 tablet 08/19/18 [Rx] Tamsulosin [Flomax] 0.4 mg PO HS #30 capsule 08/19/18 [Rx] Allergy/AdvReac Type Severity Reaction Status Date / Time No Known Allergies Allergy Verified 08/18/18 22:18 - Meds/Allergy Pre-op Review Medications Reviewed: Yes Allergies Reviewed: Yes Beta Blockers on Current Med List: No Anesthesia Results - Labs 08/19/18 04:48 08/19/18 04:48 Anesthesia Exam Last Vital Signs Temp 98.3 F 08/20/18 06:55 Pulse 77 08/20/18 06:55 Resp 14 08/20/18 06:55 BP 105/72 08/20/18 06:55 Pulse Ox 96 08/20/18 06:55 Weight: 93 kg NPO (# of Hours): > 8 hrs - HEENT Pupil (Motor): Pupils equal, EOMI Mallampati: I Teeth: Normal Oral Opening: Greater than 3 - GROOVER AND TURNER LOC: Oriented - Cardiac Rhythm: Regular Murmur: None - Pulmonary Breath Sounds: bilateral Clear Respiratory Effort: Symmetrical Anesthesia Assess/Plan ASA Score: 2 Level of consciousness: Cooperative Anesthetic Plan: General Monitoring Plan: Standard Monitors Recovery Plan: PACU
[2018-08-20] MEDS ORDERED: Lidocaine -MPF 4% 5 ML AMPUL ONE (07:14)
--- NOTE | 2018-08-20 07:22 | Urology Progress Note ---
Date of Encounter: 08/20/18 Time of Encounter: 07:21 - Assessment and Plan (1) Ureteral calculus, left Current Visit: Yes Status: Acute Assessment and plan: to or today. Progress Note Narrative: patient seen this am. did not pass stone. to or today for stone extraction. Objective Initial Vital Signs Temp Pulse Resp BP Pulse Ox 97.9 F 77 16 140/76 100 08/18/18 12:00 08/18/18 12:00 08/18/18 12:00 08/18/18 12:00 08/18/18 12:00 - General physical appearance Present: well developed, well nourished - Abdomen Present: soft. Absent: tender - Labs 08/19/18 04:48 08/19/18 04:48 Consult Discharge Plan - Plan Referrals: NONE,PCP [Primary Care Provider] - Prescriptions: OxyCODONE Immed Rel [Roxicodone 5 MG] 5 mg PO Q8HR PRN 5 Days #10 tablet PRN Reason: Severe Pain Tamsulosin [Flomax] 0.4 mg PO HS #30 capsule
--- NOTE | 2018-08-20 07:31 | Emergency Department Note ---
Disposition Clinical Impression: History of kidney stones, Intractable abdominal pain Disposition: Admitted As Inpatient Condition: Good General Adult HPI - General Chief complaint: ED Abdominal Pain Stated complaint: kidney stone Time Seen by Provider: 08/18/18 14:14 Source: patient Mode of arrival: ambulatory Limitations: no limitations - History of Present Illness Pain Scale: 0 - Related Data Previous Rx's Medication Instructions Recorded OxyCODONE Immed Rel [Roxicodone 5 5 mg PO Q8HR PRN 5 Days #10 tablet 08/19/18 MG] Tamsulosin [Flomax] 0.4 mg PO HS #30 capsule 08/19/18 Allergies Allergy/AdvReac Type Severity Reaction Status Date / Time No Known Allergies Allergy Verified 08/18/18 22:18 Constitutional: Denies: fever, chills Eyes: Denies: eye pain, vision change ENT ED: Denies: ear pain, throat pain, congestion Cardiovascular: Denies: chest pain, palpitations, syncope Respiratory: Denies: cough, dyspnea Gastrointestinal: Reports: abdominal pain (lower pelvic pain). Denies: nausea, vomiting, diarrhea Genitourinary: Denies: dysuria, hematuria Musculoskeletal: Denies: back pain, neck pain Integumentary: Denies: rash, lesions Neurological: Denies: headache, weakness, numbness Hematological/Lymphatic: Denies: easy bleeding, easy bruising Past Medical History - Past Medical History Medical history: Reports: kidney stones Surgical history: Reports: ( x2), cholecystectomy, other (Lithotripsy) Psychiatric history: Reports: no psych history - Social History Smoking Status: Never smoker Smokeless Tobacco Status: No Alcohol use: Reports: rarely Drug use: Reports: none Physical Exam - General Limitations: no limitations General appearance: alert, in no apparent distress Course Vital Signs Temperature 97.9 F 08/18/18 12:00 Pulse Rate 77 08/18/18 12:00 Respiratory Rate 16 08/18/18 12:00 Blood Pressure 140/76 08/18/18 12:00 O2 Sat by Pulse Oximetry 100 08/18/18 12:00 Temperature 98.3 F 08/20/18 06:55 Pulse Rate 77 08/20/18 06:55 Respiratory Rate 14 08/20/18 06:55 Blood Pressure 105/72 08/20/18 06:55 O2 Sat by Pulse Oximetry 96 08/20/18 06:55 Oxygen Delivery Oxygen Delivery Room Air Medical Decision Making - Lab Data Result diagrams: 08/19/18 04:48 08/19/18 04:48 Lab Results 08/18/18 08/18/18 08/18/18 Range/Units 12:07 12:20 12:20 WBC 7.4 (4.3-11.1) K/mcL RBC 4.47 (3.82-4.97) M/mcL Hgb 13.3 (11.5-15.4) g/dL Hct 40.1 (35.3-44.9) % MCV 89.7 (83.0-100.0) fL MCH 29.8 (28.0-33.3) pg MCHC 33.2 (31.6-35.5) g/dL RDW 12.4 (11.5-14.5) % Plt Count 263 (140-400) K/mcL MPV 9.5 (9.4-12.4) fL Immature Gran % 0.7 (0-4) % Seg Neutrophils % 71.1 % Lymphocytes % 18.4 % Monocytes % 6.5 % Eosinophils % 2.6 % Basophils % 0.7 % Neutrophils # 5.2 (1.6-8.9) K/mcL Lymphocytes # 1.4 (0.6-4.6) K/mcL Monocytes # 0.5 (0.0-1.3) K/mcL Eosinophils # 0.2 (0.0-0.6) K/mcL Basophils # 0.1 (0.0-0.2) K/mcL Sodium 139 (136-145) mEq/L Potassium 4.0 (3.5-5.1) mEq/L Chloride 105 (98-107) mEq/L Carbon Dioxide 29 (23-29) mEq/L BUN 14 (6-20) mg/dL Creatinine 0.81 (0.60-1.20) mg/dL Est GFR ( Amer) > 60 (> 60) Est GFR (Non-Af Amer) > 60 (> 60) BUN/Creatinine Ratio 17 (6-26) Glucose 89 (70-105) mg/dL Calculated Osmolality 288 (280-300) Calcium 9.5 (8.6-10.3) mg/dL Total Bilirubin 0.3 (0.3-1.0) mg/dL Direct Bilirubin 0.1 (0.0-0.2) mg/dL Indirect Bilirubin 0.2 (0.0-1.2) mg/dL AST 16 (13-39) Units/L ALT 21 (7-52) Units/L Alkaline Phosphatase 51 (34-104) Units/L Serum Total Protein 6.8 (6.4-8.9) g/dL Albumin 4.3 (3.5-5.7) g/dL Globulin 2.5 (2.4-3.5) g/dL Albumin/Globulin Ratio 1.7 (1.1-2.2) Lipase 23 (11-82) Units/L Ur Specimen Adequacy See below A Urine Color Parker A (Yellow) Urine Clarity Slightly Cloudy A (Clear) Urine Microscopic RBC 0-3 (0-3) per hpf Urine Microscopic WBC 3-5 H (0-3) per hpf Ur Squamous Epith Cells Few (None-Few) per lpf Urine Bacteria Few (None-Few) per hpf Ur Culture Indicated? NO (NO) Attestation Statement - Attestation Attestation: I examined this patient and my medical decision-making was reviewed with the Resident Physician. I agree with the documented findings, disposition and treatment plan as described except to the extent set forth below. Stone with refractory pain, admitted for pain control and stone retrieval. HD normal, no fever/infection.
[2018-08-20] MEDS ORDERED: Ondansetron 4 MG/2 ML VIAL IVP ONE (08:24)
[2018-08-20] MEDS ORDERED: *HR* Promethazine 25 MG/ML VIAL IVP PRN (08:24)
[2018-08-20] MEDS ORDERED: *HR* OxyCODONE Immed Rel 5 MG TABLET PO PRN ×2 (08:24→09:20)
[2018-08-20] MEDS ORDERED: *HR* HYDROmorphone (PF) 1 MG/ML SYRINGE IVP PRN (08:24)
--- NOTE | 2018-08-20 08:36 | Operative Note ---
Date of procedure: 08/20/18 Pre-op diagnosis: left kidney stone Post-op diagnosis: same Procedure: Left ureteroscopic basket retrieval stone Anesthesia: GETA Surgeon: Jose Madera Was there an behavioral health assistant present: No Estimated blood loss (cc): 0 Specimen: Left kidney stone Condition: stable Disposition: PACU Procedure in Detail: Patient was prepped and draped in normal sterile fashion. Timeout procedure performed. I then inserted the semirigid ureteroscope into the patient's bladder. I was able to cannulate the left ureteral orifice. No stone was visualized. I then advanced this all the way up to the left renal pelvis with no further stone seen. I then placed a sensor wire into the left kidney and placed the flexible ureteroscope into the left kidney. At this point I visualized the entire renal pelvis and collecting system. There was some small Rigo's plaques throughout the kidneys. I grabbed one of the smaller stones removed in its entirety. The entire ureter was fully surveyed on the way out. No stones were seen. Bladder was drained and procedure was ended. Patient taken to PACU in stable condition
--- NOTE | 2018-08-20 08:59 | Anesthesia Evaluation Post Op ---
Date of Encounter: 08/20/18 Time of Encounter: 08:58 - Vital Signs Vital Signs: Vital Signs/O2 Sat, Most Current Temp Pulse Resp BP Pulse Ox 98.7 F 60 16 104/64 98 08/20/18 08:32 08/20/18 08:52 08/20/18 08:52 08/20/18 08:52 08/20/18 08:52 - Lungs Lungs: Clear Ascult./Percussion - Airway Airway: Non-obstructed - Cardiovascular Regular Rate - Mental Status Mental Status: Alert & Oriented, Answers Appropriately, Baseline Status - Pain Pain Scale: 0 Pain Scale used: Numeric (1 - 10) - Nausea Vomiting Nausea Vomiting: Not Present - Hydration Hydration: NPO, Has not voided - Discharge PostOp Status: Transfer Patient to floor
[2018-08-20] MEDS ORDERED: 0.9 % Sodium Chloride 1,000 ML IVC SCH (09:20)
[2018-08-20] MEDS ORDERED: Naloxone 0.4 MG/ML INJ IVP PRN (09:20)
[2018-08-20 10:50] VITALS: BP 111/76
--- NOTE | 2018-08-20 17:46 | Event Note ---
Date of Encounter: 08/20/18 Time of Encounter: 12:00 Ms. Loco is a 43 year old female with a PMH of multiple renal stones who presented with suprapubic abdominal pain suggestive of kidney stone. Seen by urology who followed throughout the stay. Patient was noted to have 4 mm obstructing calculus and proximal left ureter. KUB showed distal left ureter calculus
[2018-08-20] MEDS ORDERED: *HR* Heparin 5,000 UNIT/ML VIAL SQ SCH (18:00)
[2018-08-25 16:33] LABS: Calculi Mass 9 mg
== END 2018-08-20 10:37 | disposition home or self-care (01) ==
LOC: 3BNU 11:59 → EMEROOARM 11:59 → SUATTDRO 20:04 → 3BNU 20:45
PROVIDERS: ADMIT Internal Medicine; ATTEND Family Medicine